=== PATIENT | female | born 1995 | race Caucasian/White ===

== ENCOUNTER 2023-06-06 13:18 | Emergency (ER) | payer OTHER ==
[2023-06-06 13:25] VITALS: BP 128/83; PULSE 81; RESP 18; TEMP 98.1; BMI 21.9
[2023-06-06] MEDS ORDERED: ONDANSETRON *ODT* 4 MG TABLET SL ONE (14:05)
[2023-06-06] MEDS ORDERED: ONDANSETRON *ODT* 4 MG TABLET ONE (14:11)
== END 2023-06-06 14:25 | disposition left against medical advice (07) ==
LOC: JERFT 13:18 → JER 13:18 → JERFT 14:25
DX: M54.2 Cervicalgia (principal); R11.2 Nausea with vomiting, unspecified; V49.10XA Passenger injured in collision with unspecified motor vehicles in nontraffic accident, initial encounter; Y92.410 Unspecified street and highway as the place of occurrence of the external cause
CPT/HCPCS: 99283-25; Q0162